=== PATIENT | female | born 1970 | race Caucasian/White ===

== ENCOUNTER → 2020-02-12 16:00 | Outpatient (BNVA) | payer MEDICAID, SELFPAY | PROVIDERS: Family Provider Nurse Practitioner Family; PCP Nurse Practitioner Family; Visit Provider Nurse Practitioner Family | DX: E78.2 Mixed hyperlipidemia (principal); E55.9 Vitamin D deficiency, unspecified; Z79.899 Other long term (current) drug therapy; I10 Essential (primary) hypertension; R53.83 Other fatigue; J30.2 Other seasonal allergic rhinitis; F32.9 Major depressive disorder, single episode, unspecified; K21.9 Gastro-esophageal reflux disease without esophagitis | CPT/HCPCS: 80053; 80061; 81001; 82306; 83036; 84443; 85025 ==

== ENCOUNTER → 2020-02-27 09:45 | Outpatient (BNVA) | payer MEDICAID, SELFPAY | PROVIDERS: Family Provider Nurse Practitioner Family; PCP Nurse Practitioner Family; Visit Provider Nurse Practitioner Family | DX: E53.8 Deficiency of other specified B group vitamins (principal) | CPT/HCPCS: 82607; 83921 ==

== ENCOUNTER → 2020-02-28 15:42 | Outpatient (BNVA) | payer MEDICAID, SELFPAY | PROVIDERS: Family Provider Nurse Practitioner Family; PCP Nurse Practitioner Family; Referring Provider Nurse Practitioner Family; Visit Provider Podiatrist Foot & Ankle Surgery | DX: M25.571 Pain in right ankle and joints of right foot (principal); S92.024A Nondisplaced fracture of anterior process of right calcaneus, initial encounter for closed fracture; X58.XXXA Exposure to other specified factors, initial encounter | CPT/HCPCS: 73610; 73630 ==

== ENCOUNTER 2020-02-28 16:30 | Outpatient (CLI) | payer MEDICAID, SELFPAY | END 2020-02-28 16:31 | disposition home or self-care (01) | LOC: SPT 16:31 | PROVIDERS: Family Provider Nurse Practitioner Family; PCP Nurse Practitioner Family; Visit Provider Podiatrist Foot & Ankle Surgery | DX: Z46.89 Encounter for fitting and adjustment of other specified devices (principal); S92.031D Displaced avulsion fracture of tuberosity of right calcaneus, subsequent encounter for fracture with routine healing; X58.XXXD Exposure to other specified factors, subsequent encounter | CPT/HCPCS: L4361 ==

== ENCOUNTER → 2020-03-14 13:51 | Outpatient (BNVA) | payer MEDICAID, SELFPAY | PROVIDERS: Family Provider Nurse Practitioner Family; PCP Nurse Practitioner Family; Visit Provider Podiatrist Foot & Ankle Surgery | DX: S92.031A Displaced avulsion fracture of tuberosity of right calcaneus, initial encounter for closed fracture (principal); S92.001A Unspecified fracture of right calcaneus, initial encounter for closed fracture; T14.8XXA Other injury of unspecified body region, initial encounter; X58.XXXA Exposure to other specified factors, initial encounter | CPT/HCPCS: 73650 ==

== ENCOUNTER 2020-03-14 14:36 | Outpatient (CLI) | payer MEDICAID, SELFPAY | END 2020-03-14 14:37 | disposition home or self-care (01) | LOC: SPT 14:37 | PROVIDERS: Family Provider Nurse Practitioner Family; PCP Nurse Practitioner Family; Visit Provider Podiatrist Foot & Ankle Surgery | DX: Z46.89 Encounter for fitting and adjustment of other specified devices (principal); S92.031D Displaced avulsion fracture of tuberosity of right calcaneus, subsequent encounter for fracture with routine healing; X58.XXXD Exposure to other specified factors, subsequent encounter | CPT/HCPCS: 97760; L1902 ==

== ENCOUNTER → 2020-04-11 10:46 | Outpatient (BNVA) | payer MEDICAID, SELFPAY | PROVIDERS: Family Provider Nurse Practitioner Family; PCP Nurse Practitioner Family; Visit Provider Podiatrist Foot & Ankle Surgery | DX: S92.024D Nondisplaced fracture of anterior process of right calcaneus, subsequent encounter for fracture with routine healing; X50.1XXD Overexertion from prolonged static or awkward postures, subsequent encounter | CPT/HCPCS: 73650 ==

== ENCOUNTER → 2020-08-07 09:00 | Outpatient (BNVA) | payer MEDICAID, SELFPAY | PROVIDERS: Family Provider Nurse Practitioner Family; PCP Nurse Practitioner Family; Visit Provider Podiatrist Foot & Ankle Surgery | DX: S92.031A Displaced avulsion fracture of tuberosity of right calcaneus, initial encounter for closed fracture (principal); X58.XXXA Exposure to other specified factors, initial encounter | CPT/HCPCS: 73650 ==

== ENCOUNTER → 2021-02-27 11:47 | Outpatient (BNVA) | payer BC, SELFPAY | PROVIDERS: Family Provider Nurse Practitioner Family; PCP Nurse Practitioner Family; Visit Provider Nurse Practitioner Family | DX: Z01.419 Encounter for gynecological examination (general) (routine) without abnormal findings (principal); I10 Essential (primary) hypertension; E78.2 Mixed hyperlipidemia; E55.9 Vitamin D deficiency, unspecified; Z79.899 Other long term (current) drug therapy | CPT/HCPCS: 80053; 80061; 81003; 82306; 83036; 84443; 85025 ==

== ENCOUNTER → 2022-01-09 09:03 | Outpatient (BNVA) | payer BC, MEDICAID, SELFPAY | PROVIDERS: Family Provider Nurse Practitioner Family; PCP Nurse Practitioner Family; Visit Provider Nurse Practitioner Family | DX: E55.9 Vitamin D deficiency, unspecified (principal); E78.2 Mixed hyperlipidemia; K21.9 Gastro-esophageal reflux disease without esophagitis; I10 Essential (primary) hypertension; Z79.899 Other long term (current) drug therapy; J30.89 Other allergic rhinitis; F32.9 Major depressive disorder, single episode, unspecified | CPT/HCPCS: 80053; 80061; 81003; 82306; 83036; 84443; 85025 ==

== ENCOUNTER → 2022-01-28 14:02 | Outpatient (BNVA) | payer BC, MEDICAID, SELFPAY | PROVIDERS: Family Provider Nurse Practitioner Family; PCP Nurse Practitioner Family; Visit Provider Nurse Practitioner | DX: E87.1 Hypo-osmolality and hyponatremia (principal) | CPT/HCPCS: 80053 ==

== ENCOUNTER → 2023-03-08 08:33 | Outpatient (BNVA) | payer BC, MEDICAID, SELFPAY | PROVIDERS: Family Provider Nurse Practitioner Family; PCP Nurse Practitioner Family; Visit Provider Nurse Practitioner | DX: M79.671 Pain in right foot (principal) | CPT/HCPCS: 73630 ==

== ENCOUNTER → 2023-10-07 10:50 | Outpatient (BNVA) | payer BC, MEDICAID, SELFPAY | PROVIDERS: Family Provider Nurse Practitioner Family; PCP Nurse Practitioner Family; Visit Provider Nurse Practitioner Family | DX: I10 Essential (primary) hypertension (principal); E55.9 Vitamin D deficiency, unspecified; Z79.899 Other long term (current) drug therapy | CPT/HCPCS: 80053; 80061; 81003; 82306; 83036; 84443; 85025 ==

== ENCOUNTER 2024-01-19 10:06 | Outpatient (CLI) | payer BC, MEDICAID, SELFPAY ==
--- NOTE | 2024-01-19 10:30 | MM_ITS ---
WS: [id number] BILATERAL SCREENING DIGITAL TOMOSYNTHESIS MAMMOGRAM WITH CAD HISTORY: Z12.31 - Encounter for screening mammogram for malignant ... COMPARISON: 12/17/2017 Bilateral CC and MLO views with tomosynthesis and synthetic mammography submitted. Computer aided det ection analyzed. Breast composition: The breasts are heterogeneously dense, which may obscure small masses. No suspici ous masses, microcalcifications or architectural distortion. Small calcifications in each breast. No suspicious calcification. No mass. IMPRESSION: MM/[place] [id number] BI-RADS: 2-Benign FOLLOW UP: 1 Year Follow-up
== END 2024-01-19 10:07 | disposition home or self-care (01) ==
LOC: MOBLMAM 10:10
PROVIDERS: PCP Nurse Practitioner Family; Visit Provider Nurse Practitioner Family
DX: Z12.31 Encounter for screening mammogram for malignant neoplasm of breast (principal)
CPT/HCPCS: 77063; 77067

== ENCOUNTER → 2024-10-04 09:52 | Outpatient (BNVA) | payer BC, MEDICAID, SELFPAY | PROVIDERS: PCP Nurse Practitioner Family; Visit Provider Nurse Practitioner Family | DX: I10 Essential (primary) hypertension; E78.2 Mixed hyperlipidemia; E55.9 Vitamin D deficiency, unspecified; R51.9 Headache, unspecified; G89.29 Other chronic pain; Z79.899 Other long term (current) drug therapy; K59.04 Chronic idiopathic constipation; R13.10 Dysphagia, unspecified; Z12.11 Encounter for screening for malignant neoplasm of colon; J40 Bronchitis, not specified as acute or chronic; R09.81 Nasal congestion; G43.709 Chronic migraine without aura, not intractable, without status migrainosus; N89.8 Other specified noninflammatory disorders of vagina; Z12.4 Encounter for screening for malignant neoplasm of cervix | CPT/HCPCS: 80053; 80061; 81003; 82306; 83036; 85025; 87070; 87205; 87624 ==

== ENCOUNTER 2024-10-13 14:36 | Outpatient (CLI) | payer BC, MEDICAID, SELFPAY ==
--- NOTE | 2024-10-13 14:45 | MR_ITS ---
WS: [id number] MRI HEAD WITH CONTRAST TECHNIQUE: Sagittal T1, T2 axial, T2 axial FLAIR, axial susceptibility weighted imaging, axial diffus ion weighted images, and coronal T2 images were obtained. Pre and post-T1 axial and post T1 coronal i mages. ADC and FSPGR images. CLINICAL INFORMATION: R51.9 - Headache, unspecified COMPARISON: CT 2018 FINDINGS: No evidence of restricted diffusion to suggest acute ischemia. Ventricular system and basal cisterns are patent. Minimal supratentorial white matter changes nonspecific in a patient this age but can be seen with migraine headaches. Mild parenchymal volume loss. Normal posterior fossa. Normal vascular f low voids at the skull base. No extra-axial fluid collections. No evidence of mass or mass effect. Pa ranasal sinuses and mastoid air cells are well aerated. No hemosiderin on the susceptibility weighted images. Normal optic chiasm and pituitary infundibulum. Temporal lobe and hippocampal formations are normal in appearance. No abnormal gadolinium enhancement. Incidental slightly low-lying cerebellar tonsils. Normal dural ve nous sinuses. No other suspicious findings. MR/MR head wo/w con [id number] IMPRESSION: 1. No evidence of restricted diffusion to suggest acute ischemia. 2. Mild supratentorial white matter changes nonspecific in a patient this age but can be seen with migraine headaches. 3. Mild parenchymal volume loss. 4. No hemosiderin on the susceptibly weighted images. 5. No abnormal gadolinium enhancement. 6. No other suspicious findings.
[2024-10-13] MEDS: gadobenate dimeglumine 20 mL vial 13 ML IV (15:32)
== END 2024-10-13 14:37 | disposition home or self-care (01) ==
LOC: RAD 14:38
PROVIDERS: PCP Nurse Practitioner Family; Visit Provider Nurse Practitioner Family
DX: G43.709 Chronic migraine without aura, not intractable, without status migrainosus (principal)
CPT/HCPCS: 70553; A9577

== ENCOUNTER 2024-10-30 08:49 | Day surgery (SDC) | payer BC, MEDICAID, SELFPAY ==
[2024-10-30 09:02] VITALS: BP 107/69; PULSE 99; RESP 18; TEMP 36.1; O2SAT 93
--- NOTE | 2024-10-30 09:13 | ANES.PREANE2 ---
Pre-Anesthetic Assessment Height/Weight: Height 1.69 m Weight 66.224 kg Temp Pulse Resp BP Pulse Ox O2 Del Method 97.0 F L 99 18 107/69 93 Room Air 10/30/24 09:02 10/30/24 09:02 10/30/24 09:02 10/30/24 09:02 10/30/24 09:02 10/30/24 09:02 Preop Diagnosis: Screening, GERD Operation Date: 10/30/24 10:00 Proposed Procedures p EGD 83430, 22358, G0105, Z12.11, K21.9(Not Applicable) - Radhames Thorne MD s Colonoscopy(Not Applicable) - Radhames Thorne MD Familial anesthetic complications: none Was Beta Lewis taken within 24 hours: Yes Last intake: Intake Last Liquid Date 10/29/24 Last Liquid Time 21:00 Last Solid Date 10/28/24 Last Solid Time 22:00 Social Tobacco and No alcohol Exam alert, oriented x 3 and regular rate & rhythm lung sound diminished but clear. Airway Submandibular: within normal limits Cervical ROM: within normal limits Mallampati: Class II Dentition: chipped and loose Comments: Comments: very poor dentition. right upper incisor very loose patient educated. Pulmonary Chronic Obstructive Pulmonary Disease CV/HEM Hypertension denies CP None reported Hepatic None reported GI Gastroesophageal Reflux Disease Metabolic Hyperlipidemia [facility] None reported Neuropsych Depression and Headache (recent MRI for migranes) Anesthetic Plan ASA status: 3 Anesthesia: MAC Medications/Allergies Home Medications Medication Instructions Recorded Confirmed Last Taken Type polyethylene glycol 3350 17 gram 17 g PO DAILY 30 days #30 ea 10/04/24 10/26/24 10/29/24 Rx oral powder packet (Miralax) cholecalciferol (vitamin D3) 125 5,000 unit PO DAILY 30 days #30 10/20/24 10/26/24 10/29/24 Rx mcg (5,000 unit) capsule caps ondansetron 8 mg disintegrating 8 mg PO Q8H PRN nausea and 10/20/24 10/26/24 10/29/24 Rx tablet vomiting #4 tabs albuterol sulfate 90 mcg/actuation 1 inh inhalation .Q6HR PRN Wheezing 10/26/24 10/26/24 10/29/24 History aerosol inhaler (Ventolin HFA) budesonide-formoterol HFA 160 1 puff inhalation BID 10/26/24 10/26/24 10/29/24 History mcg-4.5 mcg/actuation aerosol inhaler (Symbicort) gabapentin 600 mg tablet 600 mg PO BID PRN headaches 10/26/24 10/26/24 10/29/24 History lisinopril 20 1 tab PO DAILY 10/26/24 10/26/24 10/29/24 History mg-hydrochlorothiazide 25 mg tablet magnesium oxide 400 mg (241.3 mg 400 mg PO BID 30 days #60 tabs 10/26/24 10/30/24 10/29/24 Rx magnesium) tablet metoprolol succinate 25 mg 25 mg PO BID 10/26/24 10/26/24 10/30/24 History tablet,extended release 24 hr montelukast 10 mg tablet 10 mg PO DAILY 10/26/24 10/26/24 10/29/24 History pantoprazole 40 mg tablet,delayed 40 mg PO DAILY 10/26/24 10/26/24 10/29/24 History release paroxetine HCl 20 mg tablet 20 mg PO DAILY 10/26/24 10/26/24 10/29/24 History potassium chloride 10 mEq 10 meq PO DAILY 10/26/24 10/26/24 10/29/24 History capsule,extended release sucralfate 1 gram tablet 1 g PO QID 10/26/24 10/26/24 10/29/24 History topiramate 25 mg tablet (Topamax) 25 mg PO DAILY 10/26/24 10/26/24 10/29/24 History valacyclovir 1 gram tablet 1,000 mg PO PRN PRN Migraine 10/26/24 10/26/24 10/29/24 History Headache Allergies Allergy/AdvReac Type Severity Reaction Status Date / Time No Known Allergies Allergy Verified 10/26/24 08:54 [facility] Anesthesia Medical History Dental infection Postmenopausal Family history of breast cancer Sister diagnosed with breast cancer Well woman exam with routine gynecological exam Vaginal discharge Nasal congestion Colon cancer screening Dysphagia Constipation Cervical cancer screening Breast cancer screening by mammogram Menopausal vaginal dryness Vitamin deficiency Hyponatremia Herpes simplex labialis Medication management Essential hypertension Lower respiratory infection Chronic idiopathic constipation Mixed hyperlipidemia Vitamin D deficiency Anxiety and depression Chronic migraine Depression GERD (gastroesophageal reflux disease) Environmental and seasonal allergies Surgical History Previous section History of tubal ligation Family History Mother Hypertension Grandfather Lung cancer Maternal Sister Breast cancer Social History Smoking and tobacco/nicotine status: current every day tobacco/nicotine user cigarettes [ Other cigarette details: 1/2-1 pack per day] Alcohol intake: current Alcohol intake frequency: 3 or more drinks per day Substance/Drug Use: never Female Reproductive History Para: 1 Spontaneous abortions: No Data Anesthesia Cardiac Studies: No Data to Display
[2024-10-30] MEDS: sodium chloride 0.9% 500 ML 15 ML IV (09:16)
--- NOTE | 2024-10-30 09:31 | W.PM.OPSUD ---
Surgery/Procedure H&P Update DATE OF PROCEDURE: October 30, 2024 DATE H&P PERFORMED: 10/20/24 H&P UPDATE INFORMATION: I have reviewed H&P completed within last 30 days, I have examined patient prior to procedure and No changes to prior documentation PREOP DIAGNOSIS: Screening, GERD PLANNED PROCEDURE: Operation Date: 10/30/24 10:00 Proposed Procedures p EGD 70903, 15670, G0105, Z12.11, K21.9(Not Applicable) - Radhames Thorne MD s Colonoscopy(Not Applicable) - Radhames Thorne MD
[2024-10-30 10:06] VITALS: BP 89/66; PULSE 72; RESP 18; TEMP 36.3; O2SAT 96
[2024-10-30 10:24] VITALS: BP 125/77; PULSE 75; RESP 18; TEMP 36.2; O2SAT 99
--- NOTE | 2024-10-30 10:42 | ANE.PACU2 ---
Inpatient post-anesthesia follow up: Airway intact: Yes Vital signs: Temperature 97.2 F Pulse Rate 75 Respiratory Rate 18 Blood Pressure 125/77 Pulse Oximetry 99 Oxygen Delivery Me thod Room Air Oxygen Flow Rate Fraction of Inspir ed Oxygen Hydration adequate: Yes Nausea and vomiting: No Pain level: 1 Mental status: Baseline
== END 2024-10-30 10:42 | disposition home or self-care (01) ==
PROVIDERS: PCP Nurse Practitioner Family; Visit Provider Student in an Organized Health Care Education/Training Program
PROC: 0DJ08ZZ Inspection of Upper Intestinal Tract, Via Natural or Artificial Opening Endoscopic (ICD-10-PCS; principal; 2024-10-30 10:00)
PROC: 0DJD8ZZ Inspection of Lower Intestinal Tract, Via Natural or Artificial Opening Endoscopic (ICD-10-PCS; CPT 45378; 2024-10-30 10:00)
DX: Z12.11 Encounter for screening for malignant neoplasm of colon (principal); K21.9 Gastro-esophageal reflux disease without esophagitis; K44.9 Diaphragmatic hernia without obstruction or gangrene; K29.50 Unspecified chronic gastritis without bleeding; K52.9 Noninfective gastroenteritis and colitis, unspecified; I10 Essential (primary) hypertension; E78.2 Mixed hyperlipidemia; F17.210 Nicotine dependence, cigarettes, uncomplicated; H44.9 Unspecified disorder of globe; E78.5 Hyperlipidemia, unspecified
CPT/HCPCS: 43239; 45380; 88305; J2704; J7040

== ENCOUNTER → 2025-02-13 09:07 | Outpatient (BNVA) | payer BC, MEDICAID, SELFPAY | PROVIDERS: PCP Nurse Practitioner Family; Visit Provider Nurse Practitioner Family | DX: N05.9 Unspecified nephritic syndrome with unspecified morphologic changes (principal); N20.0 Calculus of kidney; I10 Essential (primary) hypertension; E78.2 Mixed hyperlipidemia; E55.9 Vitamin D deficiency, unspecified; E87.1 Hypo-osmolality and hyponatremia; K21.9 Gastro-esophageal reflux disease without esophagitis; D64.9 Anemia, unspecified; R53.83 Other fatigue; Z79.899 Other long term (current) drug therapy | CPT/HCPCS: 74018; 80053; 80061; 81003; 82306; 82607; 82728; 82746; 83036; 83550; 84439; 84443; 85025; 86376; 87086 ==

== ENCOUNTER 2025-02-21 13:46 | Outpatient (CLI) | payer BC, MEDICAID, SELFPAY ==
--- NOTE | 2025-02-21 13:40 | MM_ITS ---
WS: [id number] BILATERAL 3D TOMOSYNTHESIS DIGITAL SCREENING MAMMOGRAPHY WITH CAD CLINICAL INFORMATION: SCREENING HISTORY: Screening mammogram. No current complaints. COMPARISON: 2023 TECHNIQUE: Bilateral CC and MLO views. FINDINGS: The breasts are composed of heterogeneous fibroglandular density tissue, which can limit the detection of small underlying mass lesions. No suspicious mass, asymmetry, calcifications, or architectural distortion. No evidence of malignancy. Few incidental punctate calcifications. MM/MM scr tomosynthesis [id number] IMPRESSION: DENSITY: There are scattered areas of fibroglandular density. BI-RADS: 2 - Benign FOLLOW UP: 1 Year Follow-up Recommend return to annual screening mammography.
== END 2025-02-21 13:47 | disposition home or self-care (01) ==
LOC: MOBLMAM 13:47
PROVIDERS: PCP Nurse Practitioner Family; Visit Provider Nurse Practitioner Family
DX: Z12.31 Encounter for screening mammogram for malignant neoplasm of breast (principal); R92.323 Mammographic fibroglandular density, bilateral breasts; R92.1 Mammographic calcification found on diagnostic imaging of breast
CPT/HCPCS: 77063; 77067

== ENCOUNTER 2025-04-03 13:11 | Outpatient (CLI) | payer BC, MEDICAID, SELFPAY ==
--- NOTE | 2025-04-03 13:45 | MR_ITS ---
WS: [id number] MRI BRAIN WITH AND WITHOUT CONTRAST HISTORY: G43.709 - Chronic migraine without aura, not intractable,... COMPARISON: 10/13/2024 TECHNIQUE: Multiplanar imaging performed through the brain with MultiHance 13 ml's IV. No acute infarcts are seen. Mishra-white matter differentiation is well preserved. There are a few scattered T2 and FLAIR signal hyperintensities in the supratentorial white matter which are nonspecific with no progression since the prior study. No infarcts. Mild cerebral volume loss and atrophy is stable. Normal hippocampal formations. No susceptibility artifacts or prior lacunar infarcts. Ventricles and extra-axial spaces are normal. Clivus and pituitary gland are normal. Visualized posterior fossa and brainstem are also normal. Postcontrast images are negative for masses or vascular malformations. Dural venous sinuses are normal. Paranasal sinuses: No air-fluid levels in the sinuses. Mild mucoperiosteal thickening in the LEFT ethmoids sinuses. Mastoid air cells: Normal. Calvarium and scalp: Normal. MR/MR head wo/w con [id number] IMPRESSION: 1. No diffusion abnormality or acute infarcts. 2. No change in the minimal supratentorial white matter foci which are nonspec ific and may be related to migraines, diabetes, hypertension or small vessel di sease. 3. No hippocampal atrophy. 4. Mild cerebral atrophy. 5. No enhancing masses.
[2025-04-03] MEDS: gadobenate dimeglumine 20 mL vial 13 ML IV (13:55)
== END 2025-04-03 13:12 | disposition home or self-care (01) ==
LOC: RAD 13:14
PROVIDERS: PCP Nurse Practitioner Family; Visit Provider Psychiatry & Neurology Neurology
DX: G43.709 Chronic migraine without aura, not intractable, without status migrainosus (principal)
CPT/HCPCS: 70553

== ENCOUNTER 2025-05-18 09:01 | Oncology outpatient (recurring) (ONCR) | payer BC, MEDICAID, SELFPAY ==
[2025-05-18] MEDS: cosyntropin 0.25 mg SDV IVP (09:59)
[2025-05-18 10:20] LABS: Cosyntropin Baseline 11.36 mcg/dL
[2025-05-18 11:04] LABS: Cosyntropin 30 Minute 13.05 mcg/dL
[2025-05-18 11:21] VITALS: BP 165/96; PULSE 91; RESP 17; TEMP 36.6; O2SAT 98
[2025-05-18 11:53] LABS: Cosyntropin 1 Hour 17.60 mcg/dL
== END 2025-06-17 23:59 | disposition home or self-care (01) ==
PROVIDERS: PCP Nurse Practitioner Family; Visit Provider Internal Medicine
DX: G43.011 Migraine without aura, intractable, with status migrainosus (principal); R53.83 Other fatigue
CPT/HCPCS: 82533; 96374; 96375; J0834

== ENCOUNTER → 2025-08-01 08:41 | Outpatient (BNVA) | payer BC, MEDICAID, SELFPAY | PROVIDERS: PCP Nurse Practitioner Family; Visit Provider Nurse Practitioner Family | DX: A04.8 Other specified bacterial intestinal infections (principal); K52.9 Noninfective gastroenteritis and colitis, unspecified; R10.9 Unspecified abdominal pain; R11.0 Nausea; D64.9 Anemia, unspecified | CPT/HCPCS: 80053; 80061; 81003; 82150; 82306; 82728; 83036; 83550; 83690; 84443; 85025 ==